=== PATIENT | male | born 1965 | race Two or more races ===

== ENCOUNTER → 2018-09-09 | Outpatient (CLI) | payer OTHER ==
[2018-09-09 14:54] LABS: BASO # 0.1 x10^3/uL (0.0-0.2); BASO % 1 % (0-3); EOS # 0.1 x10^3/uL (0.0-0.7); EOS % 1 % (0-3); HEMATOCRIT 44.6 % (39.0-53.0); HEMOGLOBIN 14.8 g/dL (13.0-17.5); LYMPH # 1.9 x10^3/uL (1.0-4.8); LYMPH % 31 % (24-48); MEAN CORPUSCULAR HEMOGLOBIN 31 pg (25-35); MEAN CORPUSCULAR HGB CONC 33 g/dL (31-37); MEAN CORPUSCULAR VOLUME 92 fL (79-100); MONO # 0.4 x10^3/uL (0.0-1.1); MONO % 7 % (0-9); NEUT # 3.6 x10^3uL (1.8-7.7); NEUT % 60 % (31-73); PLATELET COUNT 250 x10^3/uL (140-400); RED BLOOD COUNT 4.83 x10^6/uL (4.30-5.70); RED CELL DISTRIBUTION WIDTH 13.8 % (11.5-14.5); WHITE BLOOD COUNT 6.1 x10^3/uL (4.0-11.0)
[2018-09-09 15:04] LABS: ALBUMIN 4.1 g/dL (3.4-5.0); ALBUMIN/GLOBULIN RATIO 1.3 (1.0-1.7); CALCIUM 9.5 mg/dL (8.5-10.1); CREATININE 1.1 mg/dL (0.7-1.3); GFR 70.3; POTASSIUM 4.2 mmol/L (3.5-5.1); TOTAL BILIRUBIN 0.2 mg/dL (0.2-1.0); TOTAL PROTEIN 7.2 g/dL (6.4-8.2)
== END | disposition home or self-care (01) ==
LOC: SPEC 14:30 → EEVIPCON 14:30
DX: R07.9 Chest pain, unspecified (principal)
CPT/HCPCS: 36415; 80053; 84484; 85025

== ENCOUNTER → 2021-05-22 | Outpatient (CLI) | payer OTHER ==
[~2021-05-22] MED LIST: REGADENOSON 0.4 MG/5 ML DISP.SYRIN. IV ONE
--- NOTE | 2021-05-22 16:40 | RAD ---
MR#: [id number] Date of Study: 05/22/2021 Ordering Physician: MARIA T BELLAMY, Referring Physician: MANPREET GRUBBS Tech: RT Alexander (R) (N) APPROVED REPORT Test Type: Pharmacological Stress Nurse/Tech: Shirley FORD/Gold RANGEL Test Indications: ANGINA PECTORIS Cardiac History: No known cardiac Medications: SEE EHR Medical History: SEE EHR Resting Heart Rate: 54 bpm Resting Blood Pressure: 129/71mmHg Pretest Chest Pain: None Pharm. Details Pharmacologic stress testing was performed using 0.4mg per 5ml of regadenoson given intravenously ove r 7-10 seconds. Stress Symptoms NONE POST EXERCISE Reason for Termination: Infusion complete Max HR: 93 bpm Max Blood Pressure: 126/93mmHg Blood Pressure response to exercise: Normal blood pressure response during stress. Heart Rate response to exercise: NORMAL Chest Pain: No. Arrhythmia: No. ST Change: No. INTERPRETATION Stress EKG Conclusion: NO ACUTE CHANGES DURING STRESS TEST Imaging Protocol IMAGE PROTOCOL: Rest Tc-99m/stress Tc-99m 1 day Rest: Stress: Viability: Radiopharm.Tc99m SmcnfrqysOm50q Sestamibi [id number] 33mCi Duration 15min. 15min. Img Date 05/22/2021 05/22/2021 Inj-Img [id number]. 60min. Rest Admin Site:IV - Right AntecubitalAdministrator: RT Alexander (R)(N) Stress Admin Site: IV - Right AntecubitalAdministrator: RT Alexander (R)(N) STRESS DATA End Diast. Vol.78.0mlAv. Heart Rate74.0bpm End Syst. Vol.14.0mlCO Index BSA0.0L/min Myocardial Mrln886.0gEject. Gswbxbld23.0% Stress Rates Pk. Fill Rate3.43EDV/secLVtime Pk. Fill 147.82msec Pk. Empty Rate5.38ESV/secLVtime Pk. Ybibg872.04msec 02/12 Pk. Fill1.98EDV/sec Stress Scores Regional WT0.00Summed WT1.00 Regional WM0.00Summed WM0.00 The rest and stress images show normal perfusion, normal contraction and thickening. LV Perf. Quant 17 Seg. SSS2.00 17 Seg. SRS1.00 17 Seg. SDS2.00 Stress Defect Extent (% LAD)0.00Rest Defect Extent (% LAD)0.00Rev. Defect Extent (% LAD)0.00 Stress Defect Extent (% LCX) 7.50Rest Defect Extent (% LCX)0.00Rev. Defect Extent (% LCX)1.30 Stress Defect Extent (% RCA)0.00Rest Defect Extent (% RCA)0.00Rev. Defect Extent (% RCA)0.00 Stress Defect Extent (% STARLA)1.30Rest Defect Extent (% STARLA)0.00Rev. Defect Extent (% STARLA)0.20 Other Information Quality:Average Risk Assessment: Low Risk Conclusion 1. No evidence of EKG changes with stress testing. 2. Normal perfusion at stress/rest. 3. Low risk study. 4. EF > 60%. Signed by : Lenny Mancuso, Electronically Approved : 05/22/2021 16:40:21
== END ==
LOC: NM 07:37
PROVIDERS: ATTEND Emergency Medicine
DX: I20.9 Angina pectoris, unspecified (principal)
CPT/HCPCS: 78452; 93017; A9500; J2785